=== PATIENT | female | born 2000 | race Caucasian/White ===

== ENCOUNTER 2024-10-12 09:59 | Inpatient (IN) | payer BC ==
[2024-10-15] MEDS ORDERED: Bupivacaine/Epinephrine 0.25% 30 ML VIAL ONE (08:00)
[2024-10-15 20:34] VITALS: BMI 39.6
[2024-10-15] MEDS ORDERED: Acetaminophen 500 MG TAB PO PRN (20:44)
[2024-10-15] MEDS ORDERED: hydrALAZINE 20 MG/ML VIAL SLOW IVP PRN (20:44)
[2024-10-15] MEDS ORDERED: Ondansetron PF 4 MG/2 ML Vial IVP PRN (20:44)
[2024-10-15] MEDS ORDERED: Diphenoxylate HCl/Atropine Tablet PO PRN (20:44)
[2024-10-15] MEDS ORDERED: Ibuprofen 800 MG TAB PO PRN (20:44)
[2024-10-15] MEDS ORDERED: HYDROcodone/Acetaminophen 5/325 mg Tablet PO PRN (20:44)
[2024-10-15] MEDS ORDERED: Oxytocin 30 units/NS 500 ML 500 ML IV SCH (20:44)
[2024-10-15] MEDS ORDERED: Lidocaine 1% (PF) 30 ML VIAL SC PRN (20:44)
[2024-10-15] MEDS ORDERED: Promethazine HCl 25 MG/ML VIAL IM PRN (20:44)
[2024-10-15] MEDS ORDERED: Carboprost 250 MCG/ML AMP IM PRN (20:44)
[2024-10-15] MEDS ORDERED: fentaNYL 50 mcg/mL 1 mL Vial SLOW IVP PRN (20:44)
[2024-10-15 21:24] LABS: Hematocrit 32.6 % (34.9-44.5); Hemoglobin 11.4 g/dL (12.0-15.5); Mean Corpuscular Hemoglobin 30.1 pg (27.0-33.0); Platelet Count 176 10x3/uL (150-450); RBC Distribution Width 13.3 % (11.5-14.5); Red Blood Cell (RBC) Count 3.79 10x6/uL (3.90-5.03); White Blood Cell (WBC) Count 14.6 10x3/uL (3.5-10.5)
[2024-10-15] MEDS: Misoprostol 100 MCG TAB VAG SCH (21:51)
[2024-10-15 21:52] LABS: HBsAg Index 0.17 S/CO (0-0.99); Hep B Surf Ag - L&D Non-Reactive S/CO (NonReactive)
[2024-10-15 21:53] LABS: Syphilis Antibody Nonreactive (Nonreactive); Syphilis Antibody Index 0.09 S/CO (<1.00 Non-Reactive)
[2024-10-16] MEDS ORDERED: Zolpidem Tartrate 5 MG TAB PO PRN (00:11)
[2024-10-16] MEDS: Fluticasone Propionate Nasal Spray 16 gm Bottle NASAL PRN (00:24)
[2024-10-16] MEDS: diphenhydrAMINE 25 MG CAP PO SCH (01:05)
[2024-10-16] MEDS: Oxytocin 30 units/NS 500 ML 500 ML IV SCH (12:37)
[2024-10-16] MEDS: fentaNYL/Ropivacaine Epidural 100 ML ONE (14:12)
[2024-10-16] MEDS ORDERED: Naloxone HCl 0.4 mg/ml Vial IVP PRN ×2 (14:35)
[2024-10-16] MEDS ORDERED: Acetaminophen 325 MG TAB PO PRN (14:35)
[2024-10-16] MEDS ORDERED: ePHEDrine Sulfate 50 MG/10 ML VIAL SLOW IVP PRN (14:35)
[2024-10-16] MEDS ORDERED: Moisturizing Cream (Eucerin) 113 GM JAR TOP PRN (14:35)
[2024-10-16] MEDS ORDERED: diphenhydrAMINE 50 MG/ML VIAL IVP PRN (14:35)
[2024-10-16] MEDS ORDERED: Ondansetron PF 4 MG/2 ML Vial IVP PRN (14:35)
[2024-10-16] MEDS ORDERED: Promethazine HCl 25 MG/ML VIAL IM PRN (14:35)
[2024-10-16] MEDS ORDERED: fentaNYL 2 mcg/Ropivacaine 0.2% Epidural 100 ML CADD EPIDURAL SCH (14:45)
[2024-10-16] MEDS ORDERED: Lactated Ringer's 500 ML IV PRN (15:04)
[2024-10-16] MEDS: Misoprostol 200 MCG TAB PR PRN (18:07)
[2024-10-16] MEDS: Methylergonovine 0.2 MG/ML VIAL IM PRN (18:07)
[2024-10-17] MEDS: Ibuprofen 800 MG TAB PO PRN (01:41)
[2024-10-17] MEDS: Benzocaine-Menthol 82.5 ML CAN TOP PRN (01:41)
[2024-10-17] MEDS: Lactated Ringer's 1,000 ML IV SCH (07:40)
[2024-10-17 16:02] VITALS: BP 124/60; TEMP 97.4
== END 2024-10-17 19:30 | disposition home or self-care (01) | DRG 807 ==
LOC: CSHLD 10-15 19:46 → CSHPP 10-16 20:30
PROVIDERS: ADMIT Student in an Organized Health Care Education/Training Program; ATTEND Student in an Organized Health Care Education/Training Program
PROC: 10E0XZZ Delivery of Products of Conception, External Approach (ICD-10-PCS; principal; 2024-10-16)
PROC: 0HQ9XZZ Repair Perineum Skin, External Approach (ICD-10-PCS; 2024-10-16)
DX: O48.0 Post-term pregnancy (principal); Z37.0 Single live birth; Z79.82 Long term (current) use of aspirin; Z79.899 Other long term (current) drug therapy; Z3A.40 40 weeks gestation of pregnancy
CPT/HCPCS: 36415; 36416; 51702; 85027; 86780; 86850; 86900; 86901; 87340; J2210; J2590